=== PATIENT | female | born 1955 | race Caucasian/White ===

== ENCOUNTER 2024-08-24 21:33 | Inpatient (IN) | payer MEDICARE ==
[2024-08-24] MEDS: Ondansetron 4 MG/2 ML SDV IVPUSH ONE (22:13)
[2024-08-24] MEDS: fentaNYL 100 MCG/2 ML SDV IVPUSH ONE (22:13)
[2024-08-24 22:33] LABS: BASOPHILS PERCENT AUTO 0.1 % (0.2-1.2); EOSINOPHILS PERCENT AUTO 0.1 % (0.0-4.0); HEMATOCRIT 38.1 % (33.0-47.0); HEMOGLOBIN 13.4 g/dL (12.0-16.0); IMMATURE GRAN ABSOLUTE AUTO 0.05 x10^3/uL (0.00-0.07); LYMPHOCYTES ABSOLUTE AUTO 0.4 x10^3/uL (1.0-4.8); LYMPHOCYTES PERCENT AUTO 3.4 % (25.0-50.0); MEAN CORPUSCULAR HEMOGLOBIN 34.6 pg (26.0-32.0); MEAN CORPUSCULAR HGB CONC 35.2 g/dL (32.0-36.0); MEAN CORPUSCULAR VOLUME 98.4 fL (78.0-93.0); MONOCYTES ABSOLUTE AUTO 0.7 x10^3/uL (0.0-0.8); MONOCYTES PERCENT AUTO 5.6 % (2.0-11.0); NEUTROPHILS ABSOLUTE AUTO 10.9 x10^3/uL (1.8-7.7); NEUTROPHILS PERCENT AUTO 90.4 % (50.0-80.0); PLATELET COUNT,PLT 255 x10^3/uL (130-400); RED BLOOD CELL COUNT 3.87 x10^6/uL (4.00-5.50)
[2024-08-24 22:36] LABS: WHITE BLOOD CELL COUNT,WBC 12.1 x10^3/uL (4.0-10.0)
[2024-08-24 22:58] LABS: A/G RATIO 1.22; ALANINE AMINOTRANSFERASE,ALT 28 U/L (14-59); ALBUMIN 3.9 g/dL (3.4-5.0); ALKALINE PHOSPHATASE 50 U/L (46-116); ASPARTATE AMNIOTRANSFERASE,AST 28 U/L (15-37); BLOOD UREA NITROGEN,BUN 10 mg/dL (7-18); CALCIUM 8.6 mg/dL (8.5-10.1); CARBON DIOXIDE,CO2 22 mmol/L (21-32); CHLORIDE,CL 92 mmol/L (98-107); CREATININE 0.6 mg/dL (0.55-1.02); GLUCOSE RANDOM 128 mg/dL (70-99); POTASSIUM,K 3.4 mmol/L (3.5-5.1); PROTEIN TOTAL,TP 7.1 g/dL (6.4-8.2)
[2024-08-24 23:00] LABS: ANION GAP 14.4 mmol/L (5-15); ESTIMATED GFR 96 mL/min (>=60); ETHANOL BLOOD MEDICAL < 3 mg/dL (0-3); SODIUM,NA 125 mmol/L (136-145)
[2024-08-25] MEDS: Morphine 2 MG/ML SYRINGE IVPUSH ONE (00:33)
[2024-08-25] MEDS: Iopamidol 612 MG/ML 100 ML Bottle IVPUSH ONE (00:48)
[2024-08-25] MEDS ORDERED: Naloxone 0.4 MG/ML SDV IVPUSH PRN (04:07)
[2024-08-25] MEDS: Calcium Carbonate 750 MG Tab.Chew PO PRN (04:33)
[2024-08-25] MEDS: Morphine 2 MG/ML SYRINGE IVPUSH PRN (04:33)
[2024-08-25] MEDS: Potassium Chloride 20 MEQ Tab.ER PO ONE (04:52)
[2024-08-25] MEDS: Sodium Chloride 0.9% 1,000 ML IV SCH (06:54)
[2024-08-25 06:55] LABS: BASOPHILS PERCENT AUTO 0.1 % (0.2-1.2); EOSINOPHILS PERCENT AUTO 0.1 % (0.0-4.0); HEMATOCRIT 38.5 % (33.0-47.0); HEMOGLOBIN 13.6 g/dL (12.0-16.0); IMMATURE GRAN ABSOLUTE AUTO 0.02 x10^3/uL (0.00-0.07); LYMPHOCYTES ABSOLUTE AUTO 0.5 x10^3/uL (1.0-4.8); LYMPHOCYTES PERCENT AUTO 5.7 % (25.0-50.0); MEAN CORPUSCULAR HEMOGLOBIN 34.7 pg (26.0-32.0); MEAN CORPUSCULAR HGB CONC 35.3 g/dL (32.0-36.0); MEAN CORPUSCULAR VOLUME 98.2 fL (78.0-93.0); MONOCYTES ABSOLUTE AUTO 0.8 x10^3/uL (0.0-0.8); MONOCYTES PERCENT AUTO 8.1 % (2.0-11.0); NEUTROPHILS ABSOLUTE AUTO 7.9 x10^3/uL (1.8-7.7); NEUTROPHILS PERCENT AUTO 85.8 % (50.0-80.0); PLATELET COUNT,PLT 253 x10^3/uL (130-400); RED BLOOD CELL COUNT 3.92 x10^6/uL (4.00-5.50)
[2024-08-25 07:10] LABS: WHITE BLOOD CELL COUNT,WBC 9.3 x10^3/uL (4.0-10.0)
[2024-08-25 07:15] LABS: CALCIUM 8.9 mg/dL (8.5-10.1); CREATININE 0.6 mg/dL (0.55-1.02); EST CRCL DRUG DOSING (CG) 71.14 mL/min; POTASSIUM,K 3.5 mmol/L (3.5-5.1)
[2024-08-25 07:16] LABS: ANION GAP 11.5 mmol/L (5-15)
[2024-08-25] MEDS: Cyanocobalamin (Vitamin B12) 250 MCG Tab PO SCH (08:16)
[2024-08-25] MEDS: Calcium Carbonate/Vitamin D3 1250 MG-5 MCG Tab PO SCH (08:16)
[2024-08-25] MEDS: Folic Acid 0.4 MG Tab PO SCH (08:16)
[2024-08-25] MEDS: oxyCODONE 5 MG Tab PO PRN (10:43)
[2024-08-25 14:42] LABS: AMPHETAMINES SCREEN, URINE NEGATIVE (NEGATIVE); BARBITURATE SCREEN,URINE NEGATIVE (NEGATIVE); BENZODIAZEPINES SCREEN,URINE NEGATIVE (NEGATIVE); COCAINE METABOLITES,URINE NEGATIVE (NEGATIVE); METHADONE SCREEN, URINE NEGATIVE (NEGATIVE); METHAMPHETAMINE SCREEN, URINE NEGATIVE (NEGATIVE); OXYCODONE SCREEN,URINE POSITIVE (NEGATIVE); PCP SCREEN,URINE NEGATIVE (NEGATIVE); THC SCREEN,URINE 50 NG/ML NEGATIVE (NEGATIVE)
[2024-08-25 14:43] LABS: BUPRENORPHINE SCREEN,URINE NEGATIVE (NEGATIVE)
[2024-08-25 15:07] LABS: APPEARANCE,URINE CLEAR (CLEAR); BILIRUBIN,URINE NEGATIVE (NEGATIVE); COLOR,URINE YELLOW (YELLOW); GLUCOSE,URINE NEGATIVE (NEGATIVE); KETONES,URINE 15 mg/dL (NEGATIVE); PROTEIN,URINE 30 mg/dL (NEGATIVE)
[2024-08-25 15:08] LABS: LEUKOCYTE ESTERASE,URINE NEGATIVE (NEGATIVE); NITRITE,URINE NEGATIVE (NEGATIVE); OCCULT BLOOD,URINE SMALL (NEGATIVE); RBC,URINE 0-5 /HPF (NOT SEEN); SQUAMOUS EPITHELIAL CELLS,UR FEW /HPF (NOT SEEN); UROBILINOGEN,URINE 0.2 EU/dL (0.2); WBC,URINE NOT SEEN /HPF (NOT SEEN)
[2024-08-25 15:09] LABS: AMORPHOUS SEDIMENT,URINE NOT SEEN; BACTERIA,URINE RARE /HPF (NOT SEEN); MUCUS,URINE NOT SEEN /LPF (NOT SEEN)
[2024-08-25 17:02] LABS: A/G RATIO 1.19; ALBUMIN 3.7 g/dL (3.4-5.0); BILIRUBIN TOTAL 1.1 mg/dL (0.2-1.0); CALCIUM 9.1 mg/dL (8.5-10.1); CREATININE 0.6 mg/dL (0.55-1.02); EST CRCL DRUG DOSING (CG) 71.14 mL/min; PROTEIN TOTAL,TP 6.8 g/dL (6.4-8.2)
[2024-08-25] MEDS: Acetaminophen 325 MG Tab PO PRN (17:26)
[2024-08-25] MEDS: Cyclobenzaprine 10 MG Tab PO PRN (20:29)
[2024-08-25] MEDS: atorvaSTATin 10 MG Tab PO SCH (20:30)
[2024-08-25] MEDS: Losartan 50 MG Tab PO SCH (20:30)
[2024-08-25] MEDS: Enoxaparin 40 MG/0.4 ML Syringe SUBCUT SCH (20:30)
[2024-08-25] MEDS: EXEMESTANE 25 MG PO SCH (20:31)
[2024-08-26 05:07] LABS: URINE CREATININE 86 mg/dL (20-400); URINE SODIUM 12 mEq/L
[2024-08-26 08:24] LABS: BASOPHILS PERCENT AUTO 0.2 % (0.2-1.2); EOSINOPHILS ABSOLUTE AUTO 0.1 x10^3/uL (0.0-0.5); EOSINOPHILS PERCENT AUTO 1.3 % (0.0-4.0); HEMATOCRIT 39.9 % (33.0-47.0); HEMOGLOBIN 13.7 g/dL (12.0-16.0); IMMATURE GRAN ABSOLUTE AUTO 0.01 x10^3/uL (0.00-0.07); LYMPHOCYTES PERCENT AUTO 5.8 % (25.0-50.0); MEAN CORPUSCULAR HEMOGLOBIN 34.9 pg (26.0-32.0); MEAN CORPUSCULAR HGB CONC 34.3 g/dL (32.0-36.0); MEAN CORPUSCULAR VOLUME 101.5 fL (78.0-93.0); MONOCYTES ABSOLUTE AUTO 0.7 x10^3/uL (0.0-0.8); MONOCYTES PERCENT AUTO 7.7 % (2.0-11.0); NEUTROPHILS ABSOLUTE AUTO 7.7 x10^3/uL (1.8-7.7); NEUTROPHILS PERCENT AUTO 84.9 % (50.0-80.0); PLATELET COUNT,PLT 215 x10^3/uL (130-400); RED BLOOD CELL COUNT 3.93 x10^6/uL (4.00-5.50)
[2024-08-26 08:35] LABS: CREATININE 0.6 mg/dL (0.55-1.02); EST CRCL DRUG DOSING (CG) 71.14 mL/min; POTASSIUM,K 3.7 mmol/L (3.5-5.1)
[2024-08-26 08:37] LABS: LYMPHOCYTES ABSOLUTE AUTO 0.5 x10^3/uL (1.0-4.8)
[2024-08-26 08:38] LABS: ANION GAP 13.7 mmol/L (5-15)
[2024-08-27] MEDS: Ondansetron 4 MG/2 ML SDV IV PRN (03:41)
[2024-08-27] MEDS: Glycerin 5.4 GM/7.5 ML Suppository RECTAL PRN (15:12)
[2024-08-27] MEDS: Metoprolol Tartrate 25 MG Tab PO STA (17:51)
[2024-08-27] MEDS: Polyethylene Glycol 3350 Powder 17 GM Packet PO SCH (18:04)
[2024-08-28 07:04] LABS: BASOPHILS PERCENT AUTO 0.2 % (0.2-1.2); EOSINOPHILS ABSOLUTE AUTO 0.2 x10^3/uL (0.0-0.5); EOSINOPHILS PERCENT AUTO 2.6 % (0.0-4.0); HEMATOCRIT 37.3 % (33.0-47.0); HEMOGLOBIN 13.3 g/dL (12.0-16.0); IMMATURE GRAN ABSOLUTE AUTO 0.01 x10^3/uL (0.00-0.07); LYMPHOCYTES ABSOLUTE AUTO 0.6 x10^3/uL (1.0-4.8); LYMPHOCYTES PERCENT AUTO 9.6 % (25.0-50.0); MEAN CORPUSCULAR HEMOGLOBIN 34.7 pg (26.0-32.0); MEAN CORPUSCULAR HGB CONC 35.7 g/dL (32.0-36.0); MEAN CORPUSCULAR VOLUME 97.4 fL (78.0-93.0); MONOCYTES ABSOLUTE AUTO 0.7 x10^3/uL (0.0-0.8); MONOCYTES PERCENT AUTO 10.9 % (2.0-11.0); NEUTROPHILS ABSOLUTE AUTO 5.1 x10^3/uL (1.8-7.7); NEUTROPHILS PERCENT AUTO 76.5 % (50.0-80.0); PLATELET COUNT,PLT 226 x10^3/uL (130-400); RED BLOOD CELL COUNT 3.83 x10^6/uL (4.00-5.50); WHITE BLOOD CELL COUNT,WBC 6.6 x10^3/uL (4.0-10.0)
[2024-08-28 07:08] LABS: CALCIUM 8.8 mg/dL (8.5-10.1); CREATININE 0.5 mg/dL (0.55-1.02); EST CRCL DRUG DOSING (CG) 85.37 mL/min
[2024-08-28 07:10] LABS: ANION GAP 10.8 mmol/L (5-15)
[2024-08-28 07:11] LABS: POTASSIUM,K 2.8 mmol/L (3.5-5.1)
[2024-08-28] MEDS: [UNRECOGNIZED DRUG - OTHER] RECTAL ONE (08:58)
[2024-08-28] MEDS: SODIUM PHOSPHATE RECTAL ONE (08:58)
[2024-08-28 09:04] LABS: MAGNESIUM 1.6 mg/dL (1.8-2.4)
[2024-08-28] MEDS: Magnesium Chloride 64 MG Tab.ER PO ONE (11:21)
[2024-08-28] MEDS: Potassium Chloride 20 MEQ Tab.ER PO SCH (11:22)
[2024-08-29 06:53] LABS: CREATININE 0.5 mg/dL (0.55-1.02); EST CRCL DRUG DOSING (CG) 85.37 mL/min; MAGNESIUM 1.6 mg/dL (1.8-2.4); POTASSIUM,K 3.6 mmol/L (3.5-5.1)
[2024-08-29 06:56] LABS: ANION GAP 10.6 mmol/L (5-15)
[2024-08-29 07:02] LABS: CALCIUM 9.3 mg/dL (8.5-10.1)
[2024-08-29] MEDS: Ibuprofen 200 MG Tab PO PRN (08:38)
[2024-08-29] MEDS: Magnesium Chloride 64 MG Tab.ER PO ONE (10:33)
[2024-08-29 10:47] LABS: CALCIUM 9.5 mg/dL (8.5-10.1); CREATININE 0.6 mg/dL (0.55-1.02); EST CRCL DRUG DOSING (CG) 71.14 mL/min; MAGNESIUM 1.7 mg/dL (1.8-2.4); POTASSIUM,K 3.3 mmol/L (3.5-5.1)
[2024-08-29 10:48] LABS: ANION GAP 9.3 mmol/L (5-15)
[2024-08-29] MEDS: Albuterol/Ipratropium 3.0-0.5 MG/3 ML Neb Soln NEB PRN (15:25)
[2024-08-29] MEDS ORDERED: Flumazenil 0.1 MG/ML 5 ML MDV IVPUSH PRN (17:31)
[2024-08-29] MEDS: LORazepam 0.5 MG Tab PO PRN (17:46)
[2024-08-29] MEDS: Potassium Chloride 10 MEQ Tab.ER PO SCH (17:46)
[2024-08-29 17:57] LABS: BASOPHILS PERCENT AUTO 0.3 % (0.2-1.2); EOSINOPHILS ABSOLUTE AUTO 0.2 x10^3/uL (0.0-0.5); EOSINOPHILS PERCENT AUTO 3.1 % (0.0-4.0); HEMATOCRIT 39.3 % (33.0-47.0); HEMOGLOBIN 13.7 g/dL (12.0-16.0); IMMATURE GRAN ABSOLUTE AUTO 0.02 x10^3/uL (0.00-0.07); LYMPHOCYTES ABSOLUTE AUTO 0.7 x10^3/uL (1.0-4.8); LYMPHOCYTES PERCENT AUTO 10.3 % (25.0-50.0); MEAN CORPUSCULAR HEMOGLOBIN 34.8 pg (26.0-32.0); MEAN CORPUSCULAR HGB CONC 34.9 g/dL (32.0-36.0); MEAN CORPUSCULAR VOLUME 99.7 fL (78.0-93.0); MONOCYTES ABSOLUTE AUTO 0.8 x10^3/uL (0.0-0.8); MONOCYTES PERCENT AUTO 12.9 % (2.0-11.0); NEUTROPHILS ABSOLUTE AUTO 4.7 x10^3/uL (1.8-7.7); NEUTROPHILS PERCENT AUTO 73.1 % (50.0-80.0); PLATELET COUNT,PLT 279 x10^3/uL (130-400); RED BLOOD CELL COUNT 3.94 x10^6/uL (4.00-5.50); WHITE BLOOD CELL COUNT,WBC 6.4 x10^3/uL (4.0-10.0)
[2024-08-30 07:04] LABS: CREATININE 0.5 mg/dL (0.55-1.02); EST CRCL DRUG DOSING (CG) 85.37 mL/min; MAGNESIUM 1.8 mg/dL (1.8-2.4); POTASSIUM,K 3.5 mmol/L (3.5-5.1)
[2024-08-30 07:05] LABS: ANION GAP 11.5 mmol/L (5-15)
[2024-08-30] MEDS: amLODIPine 5 MG Tab PO SCH (09:54)
[2024-08-30] MEDS: Melatonin 3 MG Tab PO PRN (22:57)
[2024-08-31 07:04] LABS: CREATININE 0.6 mg/dL (0.55-1.02); EST CRCL DRUG DOSING (CG) 71.14 mL/min; MAGNESIUM 1.9 mg/dL (1.8-2.4); POTASSIUM,K 3.6 mmol/L (3.5-5.1)
[2024-08-31 07:07] LABS: ANION GAP 11.6 mmol/L (5-15)
== END 2024-08-31 10:45 | disposition swing bed (61) | DRG 552 ==
LOC: VM.ED 21:33 → VM.MS 08-25 01:50
PROVIDERS: ADMIT Internal Medicine; ATTEND Internal Medicine
DX: M54.6 Pain in thoracic spine (principal); S22.050A Wedge compression fracture of T5-T6 vertebra, initial encounter for closed fracture; E87.1 Hypo-osmolality and hyponatremia; E78.00 Pure hypercholesterolemia, unspecified; I10 Essential (primary) hypertension; M19.90 Unspecified osteoarthritis, unspecified site; M81.0 Age-related osteoporosis without current pathological fracture; H91.90 Unspecified hearing loss, unspecified ear; H54.7 Unspecified visual loss; F32.A Depression, unspecified; E87.6 Hypokalemia; R33.9 Retention of urine, unspecified; G47.33 Obstructive sleep apnea (adult) (pediatric); K59.00 Constipation, unspecified; E66.9 Obesity, unspecified; F41.9 Anxiety disorder, unspecified; R06.02 Shortness of breath; R06.2 Wheezing; E83.42 Hypomagnesemia; Z79.899 Other long term (current) drug therapy; Z87.81 Personal history of (healed) traumatic fracture; Z85.3 Personal history of malignant neoplasm of breast; Z90.89 Acquired absence of other organs; Z98.890 Other specified postprocedural states; Z68.33 Body mass index [BMI] 33.0-33.9, adult; W19.XXXA Unspecified fall, initial encounter
CPT/HCPCS: 36415; 70450; 71260; 72125; 74177; 80053; 80307; 84484; 85025; 93005; 93010; 96374; 96375 ×2; 99284 ×2; J2270; J2405; J3010; Q9967; 51702; 51798; 71045; 80048; 80305-QW; 81001; 82550; 82570; 83735; 83930; 83935; 84132; 84300; 85379; 87040; 94640; 97110-GP; 97116-GP; 97161-GP; 97165-GO; 97530-GP; 97535-GO; 99223; 99223-GT; A9270-GY; J1650; J3490; J7030; J7620-GY

== ENCOUNTER 2024-08-31 09:47 | Inpatient (IN) | payer MEDICARE ==
[2024-08-31] MEDS ORDERED: Glycerin 5.4 GM/7.5 ML Suppository RECTAL PRN (16:22)
[2024-08-31] MEDS ORDERED: Albuterol/Ipratropium 3.0-0.5 MG/3 ML Neb Soln NEB PRN (16:22)
[2024-08-31] MEDS ORDERED: Naloxone 0.4 MG/ML SDV IVPUSH PRN (16:22)
[2024-08-31] MEDS ORDERED: Flumazenil 0.1 MG/ML 5 ML MDV IVPUSH PRN (16:22)
[2024-08-31] MEDS ORDERED: Ondansetron 4 MG/2 ML SDV IV PRN (16:22)
[2024-08-31] MEDS ORDERED: Morphine 2 MG/ML SYRINGE IVPUSH PRN (16:22)
[2024-08-31] MEDS ORDERED: Ibuprofen 200 MG Tab PO PRN (16:22)
[2024-08-31] MEDS: oxyCODONE 5 MG Tab PO PRN (17:10)
[2024-08-31] MEDS: LORazepam 0.5 MG Tab PO PRN (17:11)
[2024-08-31] MEDS: Calcium Carbonate/Vitamin D3 1250 MG-5 MCG Tab PO SCH (20:09)
[2024-08-31] MEDS: atorvaSTATin 10 MG Tab PO SCH (20:09)
[2024-08-31] MEDS: Losartan 50 MG Tab PO SCH (20:09)
[2024-08-31] MEDS: Cyclobenzaprine 10 MG Tab PO PRN (20:09)
[2024-08-31] MEDS: Enoxaparin 40 MG/0.4 ML Syringe SUBCUT SCH (20:10)
[2024-08-31] MEDS: Melatonin 3 MG Tab PO PRN (20:10)
[2024-08-31] MEDS: EXEMESTANE PO SCH (20:12)
[2024-09-01] MEDS: Acetaminophen 325 MG Tab PO PRN (03:54)
[2024-09-01] MEDS: Alendronate 70 MG Tab PO SCH (06:21)
[2024-09-01 07:04] LABS: HEMATOCRIT 35.3 % (33.0-47.0); HEMOGLOBIN 12.4 g/dL (12.0-16.0); MEAN CORPUSCULAR HEMOGLOBIN 34.7 pg (26.0-32.0); MEAN CORPUSCULAR HGB CONC 35.1 g/dL (32.0-36.0); MEAN CORPUSCULAR VOLUME 98.9 fL (78.0-93.0); RED BLOOD CELL COUNT 3.57 x10^6/uL (4.00-5.50); WHITE BLOOD CELL COUNT,WBC 5.7 x10^3/uL (4.0-10.0)
[2024-09-01] MEDS: Potassium Chloride 10 MEQ Tab.ER PO SCH (09:12)
[2024-09-01] MEDS: Folic Acid 0.4 MG Tab PO SCH (09:13)
[2024-09-01] MEDS: Cyanocobalamin (Vitamin B12) 250 MCG Tab PO SCH (09:13)
[2024-09-01] MEDS: amLODIPine 5 MG Tab PO SCH (09:14)
[2024-09-01] MEDS: Polyethylene Glycol 3350 Powder 17 GM Packet PO SCH (09:14)
[2024-09-01] MEDS: EXEMESTANE 25 MG PO SCH (20:22)
[2024-09-03] MEDS: Calcium Carbonate 750 MG Tab.Chew PO PRN (20:09)
[2024-09-04 07:19] LABS: HEMOGLOBIN 13.5 g/dL (12.0-16.0); MEAN CORPUSCULAR HEMOGLOBIN 34.3 pg (26.0-32.0); MEAN CORPUSCULAR HGB CONC 34.6 g/dL (32.0-36.0); RED BLOOD CELL COUNT 3.94 x10^6/uL (4.00-5.50); WHITE BLOOD CELL COUNT,WBC 4.2 x10^3/uL (4.0-10.0)
[2024-09-07 06:56] LABS: HEMATOCRIT 42.3 % (33.0-47.0); HEMOGLOBIN 15.1 g/dL (12.0-16.0); MEAN CORPUSCULAR HEMOGLOBIN 35.3 pg (26.0-32.0); MEAN CORPUSCULAR HGB CONC 35.7 g/dL (32.0-36.0); MEAN CORPUSCULAR VOLUME 98.8 fL (78.0-93.0); RED BLOOD CELL COUNT 4.28 x10^6/uL (4.00-5.50); WHITE BLOOD CELL COUNT,WBC 4.4 x10^3/uL (4.0-10.0)
[2024-09-08 13:53] LABS: APPEARANCE,URINE CLOUDY (CLEAR); BILIRUBIN,URINE NEGATIVE (NEGATIVE); COLOR,URINE YELLOW (YELLOW); GLUCOSE,URINE NEGATIVE (NEGATIVE); KETONES,URINE NEGATIVE (NEGATIVE); LEUKOCYTE ESTERASE,URINE LARGE (NEGATIVE); NITRITE,URINE POSITIVE (NEGATIVE); OCCULT BLOOD,URINE TRACE-INTACT (NEGATIVE); PH,URINE 7.5 (5.0-8.0); PROTEIN,URINE NEGATIVE (NEGATIVE); UROBILINOGEN,URINE 0.2 EU/dL (0.2)
[2024-09-08 14:01] LABS: AMORPHOUS SEDIMENT,URINE NOT SEEN; BACTERIA,URINE MANY /HPF (NOT SEEN); MUCUS,URINE NOT SEEN /LPF (NOT SEEN); RBC,URINE 0-5 /HPF (NOT SEEN); SQUAMOUS EPITHELIAL CELLS,UR FEW /HPF (NOT SEEN); WBC,URINE 30-40 /HPF (NOT SEEN)
[2024-09-08] MEDS: Nitrofurantoin Monohydrate/Macrocrystalline 100 MG Cap PO SCH (14:46)
== END 2024-09-08 18:46 | disposition home health service (06) | DRG 560 ==
LOC: VM.MS 11:32
PROVIDERS: ADMIT Family Medicine; ATTEND Family Medicine
DX: S22.050D Wedge compression fracture of T5-T6 vertebra, subsequent encounter for fracture with routine healing (principal); E87.1 Hypo-osmolality and hyponatremia; E78.00 Pure hypercholesterolemia, unspecified; I10 Essential (primary) hypertension; G47.30 Sleep apnea, unspecified; M81.0 Age-related osteoporosis without current pathological fracture; F32.A Depression, unspecified; H91.90 Unspecified hearing loss, unspecified ear; H54.7 Unspecified visual loss; G47.33 Obstructive sleep apnea (adult) (pediatric); W19.XXXD Unspecified fall, subsequent encounter; E66.9 Obesity, unspecified; Z68.33 Body mass index [BMI] 33.0-33.9, adult; Z79.899 Other long term (current) drug therapy; Z90.89 Acquired absence of other organs; Z98.890 Other specified postprocedural states; Z85.3 Personal history of malignant neoplasm of breast
CPT/HCPCS: 36415; 72070; 81001; 85027; 87086; 87088; 87186; 97110-GP; 97116-GP; 97164-GP; 97530-GO; 97530-GP; 97535-GO; A9270-GY; J1650